=== PATIENT | male | born 1980 | race Caucasian/White ===

== ENCOUNTER → 2017-12-02 | Outpatient (CLI) | payer OTHER ==
[~2017-12-02] MED LIST: ATIVAN0.5 MG PO; ATIVAN1 MG PO; KLONOPIN0.5 MG PO; PRILOSEC20 MG; SUBOXONE; SUBOXONE 8 MG-21 TA1 SL
== END | disposition home or self-care (01) ==
LOC: US 02:16
DX: D17.9 Benign lipomatous neoplasm, unspecified (principal)

== ENCOUNTER → 2021-11-25 | Outpatient (CLI) | payer OTHER | LOC: COVID19 16:07 | PROVIDERS: ATTEND Internal Medicine | DX: Z11.52 Encounter for screening for COVID-19 (principal); Z20.822 Contact with and (suspected) exposure to COVID-19 ==

== ENCOUNTER → 2025-03-02 | Outpatient (CLI) | payer OTHER ==
[2025-03-02 08:10] LABS: BASO # 0.1 10*3/uL (0.0-0.1); BASO % 0.8 % (0.0-1.0); EOS # 0.1 10*3/uL (0.0-0.4); EOS % 1.4 % (1.0-4.0); HEMATOCRIT 47.8 % (42.0-52.0); MEAN CELL VOLUME 92.5 fl (80.0-94.0); MEAN CORPUSCULAR HGB 31.7 pg (27.0-31.0); MEAN CORPUSCULAR HGB CONC 34.3 g/dl (33.0-37.0); MONO # 0.6 10*3/uL (0.1-1.0); MONO % 9.7 % (3.0-9.0); NEUT # 4.1 10*3/uL (2.3-7.9); NEUT % 62.6 % (47.0-73.0); PLATELET COUNT AUTOMATED 251 10*3/uL (130-400); RED BLOOD COUNT 5.17 10*6/uL (4.50-5.90); RED CELL DISTRI WIDTH 12.3 % (0-14.5); WHITE BLOOD COUNT 6.6 10*3/uL (4.8-10.8)
[2025-03-02 08:11] LABS: BILIRUBIN Negative (Negative); BLOOD Negative (Negative); CLARITY Clear (Clear); COLOR Yellow (Yellow); GLUCOSE Negative (Negative); KETONE Trace (Negative); LEUKO ESTERASE Negative (Negative); NITRITE Negative (Negative); PH 5.5 (4.5-8.0)
[2025-03-02 08:36] LABS: ALKALINE PHOSPHATASE 74 U/L (46-116); BUN 11 mg/dl (9-23); CHLORIDE 105 mmol/L (98-107); CHOLESTEROL 191 mg/dL (<200); FREE T4 1.12 ng/dl (0.89-1.76); LDL CHOLESTEROL 129 mg/dL (9-159); POTASSIUM 3.9 mmol/L (3.4-5.1); SGPT/ALT 19 U/L (5-49); TOTAL PROTEIN 7.2 gm/dL (6.0-8.0); TRIGLYCERIDES 89 mg/dl (<150)
[2025-03-02 09:22] LABS: VITAMIN D, 25-HYDROXY 31.4 ng/mL (30-100)
[2025-03-02 10:52] LABS: EPITHELIAL CELLS 0-2; MUCOUS 1+
== END | disposition home or self-care (01) ==
LOC: LAB 02:35
PROVIDERS: ATTEND Internal Medicine
DX: Z12.5 Encounter for screening for malignant neoplasm of prostate (principal); N39.0 Urinary tract infection, site not specified; R30.0 Dysuria

== ENCOUNTER → 2025-03-05 | Outpatient (CLI) | payer OTHER | END | disposition home or self-care (01) | LOC: US 02:01 | PROVIDERS: ATTEND Internal Medicine | DX: N63.25 Unspecified lump in the left breast, overlapping quadrants (principal); R30.0 Dysuria; N64.89 Other specified disorders of breast ==